=== PATIENT | male | born 1990 | race Caucasian/White ===

== ENCOUNTER 2016-12-03 23:13 | Emergency (ER) | payer SELFPAY | END 2016-12-04 01:05 | disposition home or self-care (01) | LOC: D.ER 23:13 | DX: S61.511A Laceration without foreign body of right wrist, initial encounter (principal); W26.1XXA Contact with sword or dagger, initial encounter; Y93.89 Activity, other specified; Y92.89 Other specified places as the place of occurrence of the external cause; R22.31 Localized swelling, mass and lump, right upper limb; F17.200 Nicotine dependence, unspecified, uncomplicated ==